=== PATIENT | male | born 1945 | race Caucasian/White ===

== ENCOUNTER 2020-01-18 10:28 | Inpatient (IN) | payer MEDICARE ==
[2020-01-18] VITALS (19 sets, daily range): BP systolic 109–168; BP diastolic 51–69
[~2020-01-18] VITALS: Ht 162.6 cm; Wt 70.2 kg
[2020-01-18] MEDS ORDERED: MORPHINE SULFATE 2 MG/ML VIAL. IV ONE (10:45)
[2020-01-18] MEDS ORDERED: HEPARIN for IV BOLUS 10,000 UNIT/10 ML VIAL. IV ONE (10:45)
--- NOTE | 2020-01-18 10:46 | PHYS DOC ---
Past Medical History Past Medical History: Diabetes-Type II Alcohol Use: None Drug Use: None General Adult EDM: Chief Complaint: Chest pain HPI: HPI: HPI and ED course : 75-year-old male presenting with chest pain. He has been having intermittent chest pain for a week however today he got worse and was associated with shortness of breath. He describes it as a pressure sensation that radiates to the shoulder. It is a moderate to severe. He was calling his doctor's office who called the paramedics for him based on his symptoms. Paramedics saw the patient did twelve-lead EKG and saw inferior ST elevation and called a code STEMI from the field. On arrival the cath team was here to receive the patient. Repeat EKG was performed which shows inferior ST elevation concerning for a STEMI. The patient was given aspirin in route by EMS. Here the patient was given 2 mg of morphine and a 4000 unit bolus of heparin. Plan is to take the patient to the [facility] for intervention. Review of systems negative for abdominal pain vomiting. Positive for diaphoresis nausea. Positive for chest pain and shortness of breath. Negative for unilateral leg swelling. He has some back pain as well. He denies any numbness weakness or tingling of his arms and legs. All other review of systems negative. Heart Score: Risk Factors: Risk Factors: DM, Current or recent (<one month) smoker, HTN, HLP, family history of CAD, obesity. Risk Scores: Score 0 - 3: 2.5% MACE over next 6 weeks - Discharge Home Score 4 - 6: 20.3% MACE over next 6 weeks - Admit for Clinical Observation Score 7 - 10: 72.7% MACE over next 6 weeks - Early Invasive Strategies Current Medications: Current Medications Medications (Trade) Dose Ordered Sig/[facility] Start Time Stop Time Status Last Admin Dose Admin Heparin Sodium (Porcine) (Heparin Sodium) 4,000 unit 1X ONCE 01/18/20 10:45 01/18/20 10:46 UNV Morphine Sulfate (Morphine Sulfate) 2 mg 1X ONCE 01/18/20 10:45 01/18/20 10:46 UNV Physical Exam: PE: Constitutional: Well developed, well nourished, patient appears to be in pain and uncomfortable. He is diaphoretic in the examination room. HENT: Normocephalic, atraumatic, bilateral external ears normal, oropharynx moist, no oral exudates, nose normal. [] Eyes: PERRLA, EOMI, conjunctiva normal, no discharge. [] Neck: Normal range of motion, no tenderness, supple, no stridor. [] Cardiovascular:Heart rate regular rhythm, no murmur [] Lungs & Thorax: Bilateral breath sounds clear to auscultation [] Abdomen: Bowel sounds normal, soft, no tenderness, no masses, no pulsatile masses. [] Skin: Warm, dry, no erythema, no rash. [] Back: No tenderness, no CVA tenderness. [] Extremities: No tenderness, no cyanosis, no clubbing, ROM intact, no edema. [] Neurologic: Alert and oriented X 3, normal motor function, normal sensory function, no focal deficits noted. [] Psychologic: Affect normal, judgement normal, mood normal. [] EKG: EKG: [] EKG shows sinus rhythm with a regular rate. ST segments show ST elevation in the inferior leads. STEMI. Radiology/Procedures: Radiology/Procedures: [] Course & Med Decision Making: Course & Med Decision Making Pertinent Labs and Imaging studies reviewed. (See chart for details) [] Dragon Disclaimer: Dragon Disclaimer: This electronic medical record was generated, in whole or in part, using a voice recognition dictation system. Departure Departure Impression: Primary Impression: STEMI (ST elevation myocardial infarction) Disposition: ADMITTED INPATIENT Admitting Physician: PROSPER Condition: GUARDED Justicifation of Admission Dx: Justifications for Admission: Justification of Admission Dx: Yes Angina: [facility] at Rest OR: Acute STEMI LEAH RAMOS MD Jan 18, 2020 10:46
[2020-01-18] MEDS ORDERED: fentaNYL PF VIAL 100 MCG/2 ML VIAL ONE (10:47)
[2020-01-18] MEDS ORDERED: MIDAZOLAM HCL/PF 2 MG/2 ML VIAL. ONE (10:47)
[2020-01-18] MEDS ORDERED: VERAPAMIL 5 MG/2 ML VIAL. ONE (10:48)
[2020-01-18] MEDS ORDERED: NITROGLYCERIN 200 MCG/2 ML SYRINGE FOR CATH/VASC LAB. ONE (10:48)
[2020-01-18] MEDS ORDERED: NITROGLYCERIN 200 MCG/2 ML SYRINGE FOR CATH/VASC LAB. IART ONE (11:00)
[2020-01-18] MEDS ORDERED: HEPARIN for IV BOLUS 10,000 UNIT/10 ML VIAL. IART ONE (11:00)
[2020-01-18] MEDS ORDERED: VERAPAMIL 5 MG/2 ML VIAL. IART ONE (11:00)
[2020-01-18] MEDS ORDERED: MIDAZOLAM HCL/PF 2 MG/2 ML VIAL. IV ONE (11:00)
[2020-01-18] MEDS ORDERED: fentaNYL PF VIAL 100 MCG/2 ML VIAL IV ONE (11:00)
[2020-01-18] MEDS ORDERED: IODIXANOL 320 MG/ML 100 ML VIAL. IART ONE (11:00)
[2020-01-18] MEDS ORDERED: LIDOCAINE 1% PF 2 ML VIAL. INJ ONE (11:00)
[2020-01-18 11:01] LABS: BASO # 0.1 x10^3/uL (0.0-0.2); BASO % 1 % (0-3); EOS # 0.1 x10^3/uL (0.0-0.7); EOS % 1 % (0-3); HEMATOCRIT 38.9 % (39.0-53.0); HEMOGLOBIN 13.3 g/dL (13.0-17.5); LYMPH # 1.8 x10^3/uL (1.0-4.8); LYMPH % 17 % (24-48); MEAN CORPUSCULAR HEMOGLOBIN 30 pg (25-35); MEAN CORPUSCULAR HGB CONC 34 g/dL (31-37); MEAN CORPUSCULAR VOLUME 88 fL (79-100); MONO # 0.7 x10^3/uL (0.0-1.1); MONO % 7 % (0-9); NEUT # 7.9 x10^3/uL (1.8-7.7); NEUT % 75 % (31-73); PLATELET COUNT 278 x10^3/uL (140-400); RED BLOOD COUNT 4.42 x10^6/uL (4.30-5.70); RED CELL DISTRIBUTION WIDTH 13.8 % (11.5-14.5); WHITE BLOOD COUNT 10.5 x10^3/uL (4.0-11.0)
[2020-01-18 11:09] LABS: CALCIUM 9.5 mg/dL (8.5-10.1); CREATININE 1.5 mg/dL (0.7-1.3); GFR 45.9; POTASSIUM 4.2 mmol/L (3.5-5.1)
[2020-01-18 11:15] LABS: DIRECT BILIRUBIN 0.2 mg/dL (0.0-0.2); PROTHROMBIN TIME PATIENT 12.5 SEC (11.7-14.0); TOTAL BILIRUBIN 0.5 mg/dL (0.2-1.0); TOTAL PROTEIN 7.1 g/dL (6.4-8.2)
[2020-01-18] MEDS ORDERED: CONTRAST GIVEN. MC PRN (11:15)
[2020-01-18] MEDS ORDERED: NITROGLYCERIN PREMIX 250 ML IV PRN (11:15)
[2020-01-18] MEDS ORDERED: HEPARIN for IV BOLUS 10,000 UNIT/10 ML VIAL. IV PRN (11:15)
[2020-01-18] MEDS ORDERED: HEPARIN 25,000UTS/250ML PREMIX 250 ML IV PRN (11:15)
--- NOTE | 2020-01-18 11:18 | EKG ---
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
--- NOTE | 2020-01-18 14:00 | NUR ---
Pt arrived to RM 108 @ 1130 from cath lab radiological technologist. Pt alert and oriented. Pt answers all admission questions appropriately. Head to toe completed. Heparin gtt started per CV protocol. Home medications were reviewed and restarted. Per Cardiology, pt will transfer to [facility] in the morning for CABG. Pt aware of situation.
--- NOTE | 2020-01-18 14:02 | CARD ---
MR#: [id number] Date of Study: 01/18/2020 Ordering Physician: MIN MILLS, Referring Physician: MIN MILLS, Tech: JENNY HAWTHORNE APPROVED REPORT Technologist: JENNY HAWTHORNE Nurse: ELDA JENKINS Procedure(s) performed: Fluoro Time: 3.4 min Dose: 52.47 Gycm2 Sedation Time: 30 min Contrast: 89 cc's Visi LHC, Coronary angiography, Left ventriculogram HISTORY : The patient is a 75 year-old male with a history of . INDICATION The indication(s) include : non-STEMI . CSHA Clinical Frailty Scale CS Clinical Frailty Scale: Moderately Frail Heart Failure Heart Failure: Yes If Yes, Newly Diagnosed: Yes If Yes, HF Type: Diastolic Systolic If Yes, NYHA Class: Class III PROCEDURE NARRATIVE Clinical indication: 75-year-old man with acute exertional dyspnea who presented to the hospital in t he setting of hypertensive urgency and transient ST elevations inferiorly. The cardiac catheterizati on team was activated for further evaluation and treatment. Verbal informed consent was obtained from the patient in the setting of emergency. Procedure details: Right radial arterial access was obtained via the Seldinger technique under 2% lidocaine local anesth esia and a 6 Telugu glide sheath was placed. Next, diagnostic angiography was performed with a 6 Min [facility] [place] catheter. Left ventriculography was performed with a pigtail catheter and a pullback was p erformed. Findings: Aorta: 156/82 LVEDP 20 mmHg Left ventriculogram reveals normal LV systolic function with posterior basal and proximal diaphragmat ic severe hypokinesis to akinesis. Ejection fraction 50%. Coronary angiography: Left main is a large-caliber calcified vessel with a distal 20% stenosis LAD is a moderate caliber vessel with a proximal calcified eccentric 70% stenosis followed by a calci fied 80 to 90% stenosis with focal small aneurysmal segment. The mid and distal has normal angiograp hic appearance The first diagonal is a moderate caliber vessel without any significant obstructive disease in the ta keoff of this vessel is after the proximal LAD stenosis The second diagonal is a moderate caliber vessel without any significant disease The left circumflex is a moderate caliber dominant vessel with heavy calcification and tortuosity wit h a proximal 80% stenosis, mid subtotal occlusion with a focal aneurysmal segment. OM1 is a moderate caliber vessel with mild luminal irregularities. LPL1 is a moderate caliber vessel that is seen to fill faintly via left to left collaterals. LPDA is a small caliber vessel with normal angiographic appearance. RCA is a small caliber non-dominant vessel with proximal 50% stenosis. Given lack of chest pain, normalization of EKG and chronic diffuse disease involving the dominant LCx and disease in the LAD with underlying history of DM2, the patient was referred for CABG. Conclusion 1. Acute on chronic systolic and diastolic HF. LVEDP 20 mm Hg 2. Mild LV dysfunction. EF 50% 3. Three vessel coronary disease. Recommendations ASA 81mg daily Hep gtt NTG gtt for BP control Referral for CABG. If deemed poor candidate, consider high risk PCI of the LCx and LAD. Signed by : Min Mills, Electronically Approved : 01/18/2020 14:02:05
--- NOTE | 2020-01-18 14:03 | HP ---
ADMIT DATE: 01/18/2020 CHIEF COMPLAINT: Chest pain. HISTORY OF PRESENT ILLNESS: The patient is a pleasant 75-year-old male who presents to the ER with chest pain. It is rated at 7/10. It is radiating to the left shoulder. It has been occurring for about a week. He was admitted overnight. This morning, he was taken to the garage laborer. It appears he does have multivessel disease. His troponin has also bumped up a little bit to 0.7. The patient is now being examined in the ICU. The plan I believe is to go ahead and to arrange for him to have bypass surgery. PAST MEDICAL HISTORY: Diabetes. ALLERGIES: CODEINE. FAMILY HISTORY: Coronary artery disease. SOCIAL HISTORY: He does not drink, smoke or take drugs. MEDICATIONS: Reviewed, please refer to the MRAD. REVIEW OF SYSTEMS: GENERAL: No history of weight change, weakness or fevers. SKIN: No bruising, hair changes or rashes. EYES: No blurred, double or loss of vision. NOSE AND THROAT: No history of nosebleeds, hoarseness or sore throat. HEART: No history of palpitations, chest pain or shortness of breath on exertion. LUNGS: Denies cough, hemoptysis, wheezing or shortness of breath. GASTROINTESTINAL: Denies changes in appetite, nausea, vomiting, diarrhea or constipation. GENITOURINARY: No history of frequency, urgency, hesitancy or nocturia. NEUROLOGIC: Denies history of numbness, tingling, tremor or weakness. PSYCHIATRIC: No history of panic, anxiety or depression. ENDOCRINE: No history of heat or cold intolerance, polyuria or polydipsia. EXTREMITIES: Denies muscle weakness, joint pain, pain on walking or stiffness. PHYSICAL EXAMINATION: VITALS: Within normal limits and are stable. GENERAL: No apparent distress. Alert and oriented. HEENT: Normal cephalic atraumatic, external auditory canals are patent. Eyes: Extraocular muscles are intact, pupils are equally round and reactive to light and accommodation. MUSCULOSKELETAL: Well developed, well nourished, good range of motion. ENDOCRINE: No thyromegaly was palpated. LYMPHATICS: No cervical chain or axillary nodes were noted. HEMATOPOIETIC: No bruising. NECK: Supple, no JVD, no thyromegaly was noted. LUNGS: Clear to auscultation in all lung de la cruz without rhonchi or wheezing. HEART: RRR, S1, S2 present. Peripheral pulses intact, no obvious murmurs were noted. ABDOMEN: Soft, nontender. Positive bowel sounds no organomegaly, normal bowel sounds. EXTREMITIES: He has a bandage on the right wrist where they just did the cardiac cath. NEUROLOGIC: Normal speech, normal tone. A and O x 3, moves all extremities, no obvious focal deficits. PSYCHIATRIC: Normal affect, normal mood. Stable. SKIN: No ulcerations or rashes, good skin turgor, no jaundice. VASCULAR: Good capillary refill, neurovascular bundle appears to be intact. LABORATORY DATA: Electrolytes are normal other than a BUN of 29, creatinine 1.5. White count 10, hemoglobin 13, platelets 278. INR is 1. ASSESSMENT AND PLAN: Acute myocardial infarction with multivessel coronary artery disease. The patient is currently being monitored in the ICU. We are awaiting further Cardiology input. I think the plan is to get him arranged for bypass surgery. For now, we are going to continue cardiac monitoring, home meds, deep venous thrombosis prophylaxis, wound care, p.r.n. morphine. Carotid Dopplers. We have ordered vein mapping, lipid panel, heparin drip, p.r.n. nitroglycerin. Long-term prognosis is guarded. ANABELLE PRITCHETT DO DR: XIOMARA/hair JOB#: [id number] / [id number]
[2020-01-18 14:09] LABS: CHOLESTEROL/HDL RATIO 5.6
[2020-01-18] MEDS ORDERED: BUPR150T6 PO (14:38)
[2020-01-18] MEDS ORDERED: PANT40TA77 PO (14:38)
[2020-01-18] MEDS ORDERED: HYDR25TA PO (14:38)
[2020-01-18] MEDS ORDERED: RAMI2.5C2 PO (14:38)
[2020-01-18] MEDS ORDERED: OXYB5TAB10 PO (14:38)
[2020-01-18] MEDS ORDERED: CARV6.2511 PO (14:38)
[2020-01-18] MEDS ORDERED: LEVO175T5 PO (14:38)
[2020-01-18] MEDS ORDERED: FURO40TA4 PO (14:38)
[2020-01-18] MEDS ORDERED: SUCR1TAB PO (14:38)
[2020-01-18] MEDS: FUROSEMIDE 40 MG TABLET. PO SCH (15:00)
--- NOTE | 2020-01-18 15:11 | NUR ---
Home medications restarted per MD-- furosemide not administered at 1500 due to pt taking all home medications this AM.
--- NOTE | 2020-01-18 15:20 | NUR ---
SS following for discharge planning. SS reviewed pt chart and discussed with pt RN. Pt is from home with spouse and is currently requiring oxygen. SS was notified that pt will transfer to [facility] [place] [place] for cardiac procedure on 01/19/2020. SS contacted [facility], ; fax [phone], and discussed with transfer team. SS faxed records as requested. [facility] reported that any additional records and CD of imaging be sent once received. Case management assisting. [facility] reported that they are currently awaiting facility approval. Packet and transfer form placed on chart. SS will continue to follow for discharge planning.
--- NOTE | 2020-01-18 17:17 | RAD ---
EXAM: Carotid Doppler sonogram. HISTORY: CABG. Preoperative planning. Atherosclerosis. TECHNIQUE: Doppler sonographic evaluation of the neck was performed and static images are submitted for review. FINDINGS: There is moderate atherosclerotic plaque within the bilateral internal carotid arteries and mild atherosclerotic plaque within the common carotid arteries and external carotid arteries. The peak systolic velocity within the right common carotid artery is 94 cm/sec. The peak systolic velocity within the right internal carotid artery is 81 cm/sec and the end diastolic velocity within the right internal carotid artery is 20 cm/sec. The right ICA/CCA ratio is 0.86. The peak systolic velocity within the left common carotid artery is 106 cm/sec. The peak systolic velocity within the left internal carotid artery is 96 cm/sec and the end diastolic velocity within the left internal carotid artery is 19 cm/sec. The left ICA/CCA ratio is 0.90. There is normal antegrade flow within both vertebral arteries. IMPRESSION: 1. No Doppler evidence of hemodynamically significant stenosis. 2. Moderate atherosclerotic plaque within the bilateral internal carotid arteries and mild atherosclerotic plaque within the common carotid arteries and external carotid arteries. PQRS Compliance Statement - Stenosis calculations for CT, MR and conventional angiography are based upon measurement of the distal ICA diameter in accordance with the NASCET methodology. Stenosis calculations for carotid ultrasound studies are derived from validated velocity criteria which are known to correlate with the NASCET methodology. Electronically signed by: Felipa Hoff MD (01/18/2020 5:14 PM) [id number]
--- NOTE | 2020-01-18 17:22 | RAD ---
EXAM: Bilateral lower extremity venous mapping. HISTORY: CABG. Preoperative planning. TECHNIQUE: Sonographic imaging of the lower extremity veins was performed. COMPARISON: None. FINDINGS: The right greater saphenous vein measures 9.4 mm at its origin, 4.2 mm within the proximal thigh, 3.2 mm within the mid thigh, 2.8 mm within the distal thigh, 2.9 mm at the level of the knee, 3.2 mm within the proximal calf, 2.9 mm within the mid calf and 2.9 mm at the ankle. The right lesser saphenous vein measures 3.2 mm within the proximal calf, 2.2 mm within the mid calf and 1.6 mm within the distal calf. The left greater saphenous vein measures 6.3 mm at its origin, 6.7 mm within the proximal thigh, 4.5 mm within the mid thigh, 3.3 mm within the distal thigh, 3.5 mm at the level of the knee, 3.3 mm within the proximal calf, 3.1 mm within the mid calf and 3.3 mm at the ankle. The left lesser saphenous vein measures 2.5 mm within the proximal calf, to 0.2 mm within the mid calf and 2.4 mm within the distal calf. There is an incidental nonocclusive chronic-appearing thrombus within the right common femoral vein. IMPRESSION: 1. Bilateral greater saphenous vein and lesser saphenous vein caliber measurements for operative planning. 2. Incidental nonocclusive chronic-appearing thrombus within the right common femoral vein. Electronically signed by: Felipa Hoff MD (01/18/2020 5:19 PM) [id number]
--- NOTE | 2020-01-18 17:33 | CARD ---
MR#: [id number] Date of Study: 01/18/2020 Ordering Physician: POLINA BAUER, Referring Physician: POLINA BAUER, Tech: Kaya Victor APPROVED REPORT EXAM: Two-dimensional and M-mode echocardiogram with Doppler and color Doppler. Other Information Quality : AverageHR: 68bpm INDICATION STEMI RISK FACTORS Hypertension Diabetes 2D DIMENSIONS Left Atrium(2D)3.0 (1.6-4.0cm)IVSd1.1 (0.7-1.1cm) Aortic Root(2D)3.0 (2.0-3.7cm)LVDd5.1 (3.9-5.9cm) PWd0.9 (0.7-1.1cm)LVDs2.9 (2.5-4.0cm) FS (%) 43.0 %SV92.6 ml Aortic Valve AoV Peak Anthony.153.0cm/sAoV VTI32.0cm AO Peak GR.9.4mmHgLVOT VTI 20.14cm AO Mean GR.6mmHg Mitral Valve MV E Ozoosjxw27.7cm/sMV E Peak Gr.3mmHg MV DECEL [id number] A Bpgrplie45.6cm/s MV E Mean Gr.1mmHgE/A Ratio1.2 TDI Lateral E' P. V10.46cm/sMedial E' P. V10.26cm/s E/Lateral E'8.2E/Medial E'8.4 Tricuspid Valve TR P. Fzsfnlgf952tk/sRAP [id number] TR Peak Gr.31wgQxEZHN37snPg LEFT VENTRICLE The left ventricle is normal size. There is normal left ventricular wall thickness. The left ventricu lar systolic function is normal. The Ejection Fraction is 50-55%. There is normal LV segmental wall m otion. Transmitral Doppler flow pattern is Grade II-pseudonormal filling dynamics. RIGHT VENTRICLE The right ventricle is normal size. There is normal right ventricular wall thickness. The right ventr icular systolic function is normal. ATRIA The left atrium size is normal. The right atrium size is normal. The interatrial septum is intact wit h no evidence for an atrial septal defect or patent foramen ovale as noted on 2-D or Doppler imaging. AORTIC VALVE The aortic valve is calcified but opens well. Doppler and Color Flow revealed trace aortic regurgitat ion. There is no significant aortic valvular stenosis. Calculated aortic valve area is 1.88 cm2 with maximum pressure gradient of 10 mmHg and mean pressure gradient of 6 mmHg. MITRAL VALVE The mitral valve is normal in structure and function. There is no evidence of mitral valve prolapse. There is no mitral valve stenosis. Doppler and Color-flow revealed trace mitral regurgitation. TRICUSPID VALVE The tricuspid valve is normal in structure and function. Doppler and Color Flow revealed trace tricus pid regurgitation with an estimated 21 mmHg. There is no tricuspid valve stenosis. PULMONIC VALVE The pulmonic valve is not well visualized. Doppler and Color Flow revealed no pulmonic valvular regur gitation. GREAT VESSELS The aortic root is normal in size. The ascending aorta is normal in size. The IVC is normal in size a nd collapses >50% with inspiration. PERICARDIAL EFFUSION There is no evidence of significant pericardial effusion. Critical Notification Critical Value: No <Conclusion> The left ventricle is normal size. The left ventricular systolic function is normal. The Ejection Fraction is 50-55%. There is normal LV segmental wall motion. Doppler and Color Flow revealed trace aortic regurgitation. There is no significant aortic valvular stenosis. Calculated aortic valve area is 1.88 cm2 with maximum pressure gradient of 10 mmHg and mean pressure gradient of 6 mmHg. Doppler and Color-flow revealed trace mitral regurgitation. Doppler and Color Flow revealed trace tricuspid regurgitation with an estimated 21 mmHg. Signed by : Prateek Huang MD Electronically Approved : 01/18/2020 17:33:36
[2020-01-18] MEDS: CARVEDILOL 6.25 MG TABLET. PO SCH (18:18)
[2020-01-18] MEDS: PANTOPRAZOLE 40 MG TABLET.DR. PO SCH (18:18)
[2020-01-18] MEDS: SUCRALFATE 1 GM TABLET. PO SCH ×2 (18:18→20:22)
[2020-01-18] MEDS: OXYBUTYNIN CHLORIDE 5 MG TABLET PO SCH (20:22)
--- NOTE | 2020-01-18 21:57 | NUR ---
This nurse was able to get a hold of [employer] to check on patient . A sergeant with [place] [employer] called back and stated that his was safe and she would be calling soon. His Carole called and this nurse gave her an update on the pt with his permission. The has requested that the pt be transferred to [facility] or [facility]. Will let nurse taking over care in the am know about the 's concerns and requests.
--- NOTE | 2020-01-18 23:33 | CONS ---
DATE OF CONSULTATION: 01/18/2020 REASON FOR CONSULTATION: Elevated troponin and ST segment elevation. HISTORY OF PRESENT ILLNESS: The patient is a pleasant 75-year-old man who presented to the hospital as an urgent evaluation for possible ST segment elevation. He apparently was in his doctor's office when he was noted to have sudden onset of worsening shortness of breath and chest pain and this prompted transfer to the hospital via EMS. EMS while en route activated the STEMI team. Upon arrival to the hospital, the patient was in moderate distress with dyspnea and some chest pressure. He also complained of leg pain. In this setting, an EKG reveals subtle inferior ST elevations and therefore, the patient was taken urgently to the cardiac catheterization laboratory. PAST MEDICAL HISTORY: 1. Hypertension. 2. Hypothyroidism. 3. Dyslipidemia. 4. Diabetes. SOCIAL HISTORY: The patient denies any alcohol, tobacco or illicit drug use. 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 He does not have significant family support. ALLERGIES: CODEINE. FAMILY HISTORY: Noncontributory. REVIEW OF SYSTEMS: Negative for 10 out of 14 systems reviewed, unless otherwise mentioned above in HPI. PHYSICAL EXAMINATION: VITAL SIGNS: Afebrile. 68, 18, 149/66, 96% on room air. GENERAL: He was in moderate distress upon initial evaluation, but then was stabilized. HEAD AND NECK: Unremarkable. CARDIAC: Regular rate without any murmurs. LUNGS: Clear to auscultation anteriorly. ABDOMEN: Soft, nontender. EXTREMITIES: 2+ radial and dorsalis pedis pulses. NEUROLOGIC: No focal deficits. MUSCULOSKELETAL: No trauma. DIAGNOSTIC STUDIES: Initial EKG revealed subtle anterior ST segment depression, inferior ST elevation. Laboratory evaluation revealed normal white blood cell count. Creatinine 1.5 and BNP of 1144. Cardiac catheterization, 3-vessel coronary artery disease. IMPRESSION: 1. Transient inferior-posterior ST segment elevation myocardial infarction. 2. Hypertension. 3. Dyslipidemia. RECOMMENDATIONS: I discussed the case with Dr. Wood at [facility] regarding possible transfer for evaluation of coronary artery bypass grafting given that he has complex disease involving the left circumflex, which is a dominant vessel. The patient will be evaluated for bypass and transferred as appropriate in the next 24 hours. Continue heparin and aspirin therapy. Thank you for this consultation. We will follow along closely. MIN MILLS MD DR: KATHERYN/hair JOB#: [id number] / [id number]
[2020-01-19] VITALS (9 sets, daily range): BP systolic 121–153; BP diastolic 51–75
[2020-01-19] MEDS ORDERED: MAG HYDROX/ALUMINUM HYD/SIMETH 30 ML ORAL.SUSP PO PRN (02:30)
[2020-01-19] MEDS ORDERED: LEVOTHYROXINE 175 MCG TABLET PO SCH (06:00)
--- NOTE | 2020-01-19 06:59 | NUR ---
Report called to Jhoan at [facility].
[2020-01-19 07:15] LABS: HEMATOCRIT 36.1 % (39.0-53.0); HEMOGLOBIN 12.6 g/dL (13.0-17.5); RED BLOOD COUNT 4.12 x10^6/uL (4.30-5.70); RED CELL DISTRIBUTION WIDTH 13.5 % (11.5-14.5)
[2020-01-19] MEDS ORDERED: buPROPion XL 150 MG TAB.ER.24H. PO SCH (08:00)
[2020-01-19] MEDS: SUCRALFATE 1 GM TABLET. PO SCH (08:01)
[2020-01-19] MEDS: OXYBUTYNIN CHLORIDE 5 MG TABLET PO SCH (08:02)
[2020-01-19] MEDS: FUROSEMIDE 40 MG TABLET. PO SCH (08:02)
[2020-01-19] MEDS: PANTOPRAZOLE 40 MG TABLET.DR. PO SCH (08:02)
[2020-01-19] MEDS: CARVEDILOL 6.25 MG TABLET. PO SCH (08:02)
[2020-01-19] MEDS ORDERED: ASPIRIN CHEWABLE 81 MG TABLET. ONE (08:39)
--- NOTE | 2020-01-19 08:41 | NUR ---
SS following up with discharge planning. Pt accepted at [facility], [address] [place], [address]. Bed# 2338. Accepting physician, Dr. Us. Packet, CD's, ambulance form, and transfer form on chart. Pt transferring via [facility] at 0845 today.
--- NOTE | 2020-01-19 08:42 | RAD ---
CT CHEST WO CONTRAST History: Pre-CABG evaluation. Technique: Noncontrast CT of the chest was performed. Coronal and sagittal reconstructions were performed. Exposure: One or more of the following individualized dose reduction techniques were utilized for this examination: 1. Automated exposure control 2. Adjustment of the mA and/or kV according to patient size 3. Use of iterative reconstruction technique. Comparison: None Findings: Chest: Coronary artery calcification. Mild atheromatous plaque within the aorta. No pathologic lymphadenopathy. No consolidation or pleural effusion. Upper abdomen: Prior cholecystectomy. Bones: Chronic T10 superior endplate compression deformity. No pathologic osseous lesions. Impression: 1. Coronary artery calcification. Electronically signed by: Haider Ulloa DO (01/19/2020 8:40 AM) [id number]
--- NOTE | 2020-01-19 08:50 | NUR ---
Pt transferred to [facility] per EMS with 2l nc/. Cell phone clothes wallet in bag. He talked with on phone. ASA 81 po with morning meds. Hep gtt infusing. Report update to Jhoan MORAN as hep increased to 11.2cc( 16U/K/H) CT chest was done eartlier. Pt w/o apin or SOA. 1/2 piece of toast with meds. Marci CERVANTES updated
--- NOTE | 2020-01-19 09:10 | PDOC ---
PROGRESS NOTES History of Present Illness History of Present Illness ASSESSMENT AND PLAN: Acute myocardial infarction with multivessel coronary artery disease. NTG gtt for BP control Referral for CABG. LAD is a moderate caliber vessel with a proximal calcified eccentric 70% stenosis followed by a calcified 80 to 90% stenosis with focal small aneurysmal segment. The mid and distal has normal angiographic appearance The first diagonal is a moderate caliber vessel without any significant obstructive disease in the takeoff of this vessel is after the proximal LAD stenosis The second diagonal is a moderate caliber vessel without any significant disease The left circumflex is a moderate caliber dominant vessel with heavy calcification and tortuosity with a proximal 80% stenosis, plan ICU bed. Cardiology input. bypass surgery. home meds, deep venous thrombosis prophylaxis, wound care, p.r.n. morphine. Carotid Dopplers. vein mapping, lipid panel, heparin drip, p.r.n. nitroglycerin. The patient will be evaluated for bypass and transferred as appropriate in the next 4 hours. Continue heparin and aspirin therapy. 35 MIN CC TIME Vitals Vitals Vital Signs Date Time Temp Pulse Resp B/P (MAP) Pulse Ox O2 Delivery O2 Flow Rate FiO2 01/19/20 08:02 68 150/60 01/19/20 08:00 98.4 16 98 Nasal Cannula 2.0 98.4 Physical Exam General: Alert, Oriented X3, Cooperative Labs LABS CT CHEST WO CONTRAST History: Pre-CABG evaluation. Technique: Noncontrast CT of the chest was performed. Coronal and sagittal reconstructions were performed. Exposure: One or more of the following individualized dose reduction techniques were utilized for this examination: 1. Automated exposure control 2. Adjustment of the mA and/or kV according to patient size 3. Use of iterative reconstruction technique. Comparison: None Findings: Chest: Coronary artery calcification. Mild atheromatous plaque within the aorta. No pathologic lymphadenopathy. No consolidation or pleural effusion. Upper abdomen: Prior cholecystectomy. Bones: Chronic T10 superior endplate compression deformity. No pathologic osseous lesions. Impression: 1. Coronary artery calcification. Electronically signed by: Haider Barros DO (01/19/2020 8:40 AM) [id number] DICTATED and SIGNED BY: HAIDER BARROS DO DATE: 01/19/20 0840 Heart Failure Heart Failure: Yes If Yes, Newly Diagnosed: Yes If Yes, HF Type: Diastolic Systolic If Yes, NYHA Class: Class III PROCEDURE NARRATIVE Clinical indication: 75-year-old man with acute exertional dyspnea who presented to the hospital in the setting of hypertensive urgency and transient ST elevations inferiorly. The cardiac catheterization team was activated for further evaluation and treatment. Verbal informed consent was obtained from the patient in the setting of emergency. Procedure details: Right radial arterial access was obtained via the Seldinger technique under 2% lidocaine local anesthesia and a 6 Danish glide sheath was placed. Next, diagnostic angiography was performed with a 6 Danish [place] catheter. Left ventriculography was performed with a pigtail catheter and a pullback was performed. Findings: Aorta: 156/82 LVEDP 20 mmHg Left ventriculogram reveals normal LV systolic function with posterior basal and proximal diaphragmatic severe hypokinesis to akinesis. Ejection fraction 50%. Coronary angiography: Left main is a large-caliber calcified vessel with a distal 20% stenosis LAD is a moderate caliber vessel with a proximal calcified eccentric 70% stenosis followed by a calcified 80 to 90% stenosis with focal small aneurysmal segment. The mid and distal has normal angiographic appearance The first diagonal is a moderate caliber vessel without any significant obstructive disease in the takeoff of this vessel is after the proximal LAD stenosis The second diagonal is a moderate caliber vessel without any significant disease The left circumflex is a moderate caliber dominant vessel with heavy calcification and tortuosity with a proximal 80% stenosis, mid subtotal occlusion with a focal aneurysmal segment. OM1 is a moderate caliber vessel with mild luminal irregularities. LPL1 is a moderate caliber vessel that is seen to fill faintly via left to left collaterals. LPDA is a small caliber vessel with normal angiographic appearance. RCA is a small caliber non-dominant vessel with proximal 50% stenosis. Given lack of chest pain, normalization of EKG and chronic diffuse disease involving the dominant LCx and disease in the LAD with underlying history of DM2, the patient was referred for CABG. Conclusion 1. Acute on chronic systolic and diastolic HF. LVEDP 20 mm Hg 2. Mild LV dysfunction. EF 50% 3. Three vessel coronary disease. Recommendations ASA 81mg daily Hep gtt NTG gtt for BP control Referral for CABG. If deemed poor candidate, consider high risk PCI of the LCx and LAD. Signed by : Mickey Mullins, Electronically Approved : 01/18/2020 14:02:05 Laboratory Tests Test 01/18/20 10:42 01/18/20 17:45 01/18/20 18:00 01/19/20 00:50 White Blood Count 10.5 x10^3/uL (4.0-11.0) Red Blood Count 4.42 x10^6/uL (4.30-5.70) Hemoglobin 13.3 g/dL (13.0-17.5) Hematocrit 38.9 % (39.0-53.0) Mean Corpuscular Volume 88 fL (79-100) Mean Corpuscular Hemoglobin 30 pg (25-35) Mean Corpuscular Hemoglobin Concent 34 g/dL (31-37) Red Cell Distribution Width 13.8 % (11.5-14.5) Platelet Count 278 x10^3/uL (140-400) Neutrophils (%) (Auto) 75 % (31-73) Lymphocytes (%) (Auto) 17 % (24-48) Monocytes (%) (Auto) 7 % (0-9) Eosinophils (%) (Auto) 1 % (0-3) Basophils (%) (Auto) 1 % (0-3) Neutrophils # (Auto) 7.9 x10^3/uL (1.8-7.7) Lymphocytes # (Auto) 1.8 x10^3/uL (1.0-4.8) Monocytes # (Auto) 0.7 x10^3/uL (0.0-1.1) Eosinophils # (Auto) 0.1 x10^3/uL (0.0-0.7) Basophils # (Auto) 0.1 x10^3/uL (0.0-0.2) Prothrombin Time 12.5 SEC (11.7-14.0) Prothromb Time International Ratio 1.0 (0.8-1.1) Activated Partial Thromboplast Time 27 SEC (24-38) Sodium Level 138 mmol/L (136-145) Potassium Level 4.2 mmol/L (3.5-5.1) Chloride Level 103 mmol/L (98-107) Carbon Dioxide Level 28 mmol/L (21-32) Anion Gap 7 (6-14) Blood Urea Nitrogen 29 mg/dL (8-26) Creatinine 1.5 mg/dL (0.7-1.3) Estimated GFR (Cockcroft-Gault) 45.9 Glucose Level 198 mg/dL (70-99) Calcium Level 9.5 mg/dL (8.5-10.1) Total Bilirubin 0.5 mg/dL (0.2-1.0) Direct Bilirubin 0.2 mg/dL (0.0-0.2) Aspartate Amino Transf (AST/SGOT) 38 U/L (15-37) Alanine Aminotransferase (ALT/SGPT) 50 U/L (16-63) Alkaline Phosphatase 237 U/L (46-116) Troponin I Quantitative 0.703 ng/mL (0.000-0.055) ZY-Trx-U-Type Natriuretic Peptide 1144 pg/mL (0-124) Total Protein 7.1 g/dL (6.4-8.2) Albumin 3.0 g/dL (3.4-5.0) Triglycerides Level 178 mg/dL (0-150) Cholesterol Level 190 mg/dL (0-200) LDL Cholesterol, Calculated 120 mg/dL (0-100) VLDL Cholesterol, Calculated 36 mg/dL (0-40) Non-HDL Cholesterol Calculated 156 mg/dL (0-129) HDL Cholesterol 34 mg/dL (40-60) Cholesterol/HDL Ratio 5.6 Lipase 160 U/L (73-393) Heparin Anti-Xa Act, Unfractionated 0.31 IU/mL (0.30-0.70) 0.20 IU/mL (0.30-0.70) SARS-CoV-2 Antigen (Rapid) Negative (NEGATIVE) Test 01/19/20 06:55 White Blood Count 9.0 x10^3/uL (4.0-11.0) Red Blood Count 4.12 x10^6/uL (4.30-5.70) Hemoglobin 12.6 g/dL (13.0-17.5) Hematocrit 36.1 % (39.0-53.0) Mean Corpuscular Volume 88 fL (79-100) Mean Corpuscular Hemoglobin 31 pg (25-35) Mean Corpuscular Hemoglobin Concent 35 g/dL (31-37) Red Cell Distribution Width 13.5 % (11.5-14.5) Platelet Count 233 x10^3/uL (140-400) Heparin Anti-Xa Act, Unfractionated 0.28 IU/mL (0.30-0.70) Assessment and Plan Assessmemt and Plan Problems Medical Problems: (1) STEMI (ST elevation myocardial infarction) Status: Acute Comment Review of Relevant I have reviewed the following items elidia (where applicable) has been applied. Labs Laboratory Tests Test 01/18/20 10:42 01/18/20 17:45 01/18/20 18:00 01/19/20 00:50 White Blood Count 10.5 x10^3/uL (4.0-11.0) Red Blood Count 4.42 x10^6/uL (4.30-5.70) Hemoglobin 13.3 g/dL (13.0-17.5) Hematocrit 38.9 % (39.0-53.0) Mean Corpuscular Volume 88 fL (79-100) Mean Corpuscular Hemoglobin 30 pg (25-35) Mean Corpuscular Hemoglobin Concent 34 g/dL (31-37) Red Cell Distribution Width 13.8 % (11.5-14.5) Platelet Count 278 x10^3/uL (140-400) Neutrophils (%) (Auto) 75 % (31-73) Lymphocytes (%) (Auto) 17 % (24-48) Monocytes (%) (Auto) 7 % (0-9) Eosinophils (%) (Auto) 1 % (0-3) Basophils (%) (Auto) 1 % (0-3) Neutrophils # (Auto) 7.9 x10^3/uL (1.8-7.7) Lymphocytes # (Auto) 1.8 x10^3/uL (1.0-4.8) Monocytes # (Auto) 0.7 x10^3/uL (0.0-1.1) Eosinophils # (Auto) 0.1 x10^3/uL (0.0-0.7) Basophils # (Auto) 0.1 x10^3/uL (0.0-0.2) Prothrombin Time 12.5 SEC (11.7-14.0) Prothromb Time International Ratio 1.0 (0.8-1.1) Activated Partial Thromboplast Time 27 SEC (24-38) Sodium Level 138 mmol/L (136-145) Potassium Level 4.2 mmol/L (3.5-5.1) Chloride Level 103 mmol/L (98-107) Carbon Dioxide Level 28 mmol/L (21-32) Anion Gap 7 (6-14) Blood Urea Nitrogen 29 mg/dL (8-26) Creatinine 1.5 mg/dL (0.7-1.3) Estimated GFR (Cockcroft-Gault) 45.9 Glucose Level 198 mg/dL (70-99) Calcium Level 9.5 mg/dL (8.5-10.1) Total Bilirubin 0.5 mg/dL (0.2-1.0) Direct Bilirubin 0.2 mg/dL (0.0-0.2) Aspartate Amino Transf (AST/SGOT) 38 U/L (15-37) Alanine Aminotransferase (ALT/SGPT) 50 U/L (16-63) Alkaline Phosphatase 237 U/L (46-116) Troponin I Quantitative 0.703 ng/mL (0.000-0.055) SI-Dlh-H-Type Natriuretic Peptide 1144 pg/mL (0-124) Total Protein 7.1 g/dL (6.4-8.2) Albumin 3.0 g/dL (3.4-5.0) Triglycerides Level 178 mg/dL (0-150) Cholesterol Level 190 mg/dL (0-200) LDL Cholesterol, Calculated 120 mg/dL (0-100) VLDL Cholesterol, Calculated 36 mg/dL (0-40) Non-HDL Cholesterol Calculated 156 mg/dL (0-129) HDL Cholesterol 34 mg/dL (40-60) Cholesterol/HDL Ratio 5.6 Lipase 160 U/L (73-393) Heparin Anti-Xa Act, Unfractionated 0.31 IU/mL (0.30-0.70) 0.20 IU/mL (0.30-0.70) SARS-CoV-2 Antigen (Rapid) Negative (NEGATIVE) Test 01/19/20 06:55 White Blood Count 9.0 x10^3/uL (4.0-11.0) Red Blood Count 4.12 x10^6/uL (4.30-5.70) Hemoglobin 12.6 g/dL (13.0-17.5) Hematocrit 36.1 % (39.0-53.0) Mean Corpuscular Volume 88 fL (79-100) Mean Corpuscular Hemoglobin 31 pg (25-35) Mean Corpuscular Hemoglobin Concent 35 g/dL (31-37) Red Cell Distribution Width 13.5 % (11.5-14.5) Platelet Count 233 x10^3/uL (140-400) Heparin Anti-Xa Act, Unfractionated 0.28 IU/mL (0.30-0.70) Laboratory Tests Test 01/18/20 10:42 01/18/20 17:45 01/18/20 18:00 01/19/20 00:50 White Blood Count 10.5 x10^3/uL (4.0-11.0) Red Blood Count 4.42 x10^6/uL (4.30-5.70) Hemoglobin 13.3 g/dL (13.0-17.5) Hematocrit 38.9 % (39.0-53.0) Mean Corpuscular Volume 88 fL (79-100) Mean Corpuscular Hemoglobin 30 pg (25-35) Mean Corpuscular Hemoglobin Concent 34 g/dL (31-37) Red Cell Distribution Width 13.8 % (11.5-14.5) Platelet Count 278 x10^3/uL (140-400) Neutrophils (%) (Auto) 75 % (31-73) Lymphocytes (%) (Auto) 17 % (24-48) Monocytes (%) (Auto) 7 % (0-9) Eosinophils (%) (Auto) 1 % (0-3) Basophils (%) (Auto) 1 % (0-3) Neutrophils # (Auto) 7.9 x10^3/uL (1.8-7.7) Lymphocytes # (Auto) 1.8 x10^3/uL (1.0-4.8) Monocytes # (Auto) 0.7 x10^3/uL (0.0-1.1) Eosinophils # (Auto) 0.1 x10^3/uL (0.0-0.7) Basophils # (Auto) 0.1 x10^3/uL (0.0-0.2) Prothrombin Time 12.5 SEC (11.7-14.0) Prothromb Time International Ratio 1.0 (0.8-1.1) Activated Partial Thromboplast Time 27 SEC (24-38) Sodium Level 138 mmol/L (136-145) Potassium Level 4.2 mmol/L (3.5-5.1) Chloride Level 103 mmol/L (98-107) Carbon Dioxide Level 28 mmol/L (21-32) Anion Gap 7 (6-14) Blood Urea Nitrogen 29 mg/dL (8-26) Creatinine 1.5 mg/dL (0.7-1.3) Estimated GFR (Cockcroft-Gault) 45.9 Glucose Level 198 mg/dL (70-99) Calcium Level 9.5 mg/dL (8.5-10.1) Total Bilirubin 0.5 mg/dL (0.2-1.0) Direct Bilirubin 0.2 mg/dL (0.0-0.2) Aspartate Amino Transf (AST/SGOT) 38 U/L (15-37) Alanine Aminotransferase (ALT/SGPT) 50 U/L (16-63) Alkaline Phosphatase 237 U/L (46-116) Troponin I Quantitative 0.703 ng/mL (0.000-0.055) US-Xwk-R-Type Natriuretic Peptide 1144 pg/mL (0-124) Total Protein 7.1 g/dL (6.4-8.2) Albumin 3.0 g/dL (3.4-5.0) Triglycerides Level 178 mg/dL (0-150) Cholesterol Level 190 mg/dL (0-200) LDL Cholesterol, Calculated 120 mg/dL (0-100) VLDL Cholesterol, Calculated 36 mg/dL (0-40) Non-HDL Cholesterol Calculated 156 mg/dL (0-129) HDL Cholesterol 34 mg/dL (40-60) Cholesterol/HDL Ratio 5.6 Lipase 160 U/L (73-393) Heparin Anti-Xa Act, Unfractionated 0.31 IU/mL (0.30-0.70) 0.20 IU/mL (0.30-0.70) SARS-CoV-2 Antigen (Rapid) Negative (NEGATIVE) Test 01/19/20 06:55 White Blood Count 9.0 x10^3/uL (4.0-11.0) Red Blood Count 4.12 x10^6/uL (4.30-5.70) Hemoglobin 12.6 g/dL (13.0-17.5) Hematocrit 36.1 % (39.0-53.0) Mean Corpuscular Volume 88 fL (79-100) Mean Corpuscular Hemoglobin 31 pg (25-35) Mean Corpuscular Hemoglobin Concent 35 g/dL (31-37) Red Cell Distribution Width 13.5 % (11.5-14.5) Platelet Count 233 x10^3/uL (140-400) Heparin Anti-Xa Act, Unfractionated 0.28 IU/mL (0.30-0.70) Medications Current Medications Heparin Sodium (Porcine) (Heparin Sodium) 4,000 unit 1X ONCE IV Last administered on 01/18/20at 10:40; Start 01/18/20 at 10:45; Stop 01/18/20 at 11:00; Status DC Morphine Sulfate (Morphine Sulfate) 2 mg 1X ONCE IV Last administered on 01/18/20at 10:40; Start 01/18/20 at 10:45; Stop 01/18/20 at 11:00; Status DC Fentanyl Citrate (Fentanyl 2ml Vial) 100 mcg STK-MED ONCE .ROUTE ; Start 01/18/20 at 10:47; Stop 01/18/20 at 10:47; Status DC Midazolam HCl (Versed) 2 mg STK-MED ONCE .ROUTE ; Start 01/18/20 at 10:47; Stop 01/18/20 at 10:47; Status DC Verapamil HCl (Verapamil) 5 mg STK-MED ONCE .ROUTE ; Start 01/18/20 at 10:48; Stop 01/18/20 at 10:48; Status DC Nitroglycerin (Nitroglycerin) 200 mcg STK-MED ONCE .ROUTE ; Start 01/18/20 at 10:48; Stop 01/18/20 at 10:48; Status DC Nitroglycerin (Nitroglycerin) 200 mcg 1X ONCE IART Last administered on 01/18/20at 11:00; Start 01/18/20 at 11:00; Stop 01/18/20 at 11:07; Status DC Verapamil HCl (Verapamil) 2.5 mg 1X ONCE IART Last administered on 01/18/20at 11:00; Start 01/18/20 at 11:00; Stop 01/18/20 at 11:07; Status DC Heparin Sodium (Porcine) (Heparin Sodium) 2,500 unit 1X ONCE IART Last administered on 01/18/20at 11:00; Start 01/18/20 at 11:00; Stop 01/18/20 at 11:07; Status DC Heparin Sodium/ Sodium Chloride (HEPARIN for ARTERIAL LINE FLUSH) 1,000 unit 1X ONCE IART Last administered on 01/18/20at 11:00; Start 01/18/20 at 11:00; Stop 01/18/20 at 11:08; Status DC Heparin Sodium/ Sodium Chloride (HEPARIN for ARTERIAL LINE FLUSH) 1,000 unit 1X ONCE IART Last administered on 01/18/20at 11:00; Start 01/18/20 at 11:00; Stop 01/18/20 at 11:07; Status DC Midazolam HCl (Versed) 2 mg 1X ONCE IV Last administered on 01/18/20at 11:00; Start 01/18/20 at 11:00; Stop 01/18/20 at 11:07; Status DC Fentanyl Citrate (Fentanyl 2ml Vial) 100 mcg 1X ONCE IV Last administered on at 11:00; Start 01/18/20 at 11:00; Stop 01/18/20 at 11:07; Status DC Iodixanol (Visipaque 320) 100 ml 1X ONCE IART Last administered on 01/18/20at 11:00; Start 01/18/20 at 11:00; Stop 01/18/20 at 11:07; Status DC Lidocaine HCl (Xylocaine-Mpf 1% 2ml Vial) 2 ml 1X ONCE INJ Last administered on 01/18/20at 11:00; Start 01/18/20 at 11:00; Stop 01/18/20 at 11:07; Status DC Info (CONTRAST GIVEN -- Rx MONITORING) 1 each PRN DAILY PRN MC SEE COMMENTS; Start 01/18/20 at 11:15; Stop 01/20/20 at 11:14 Heparin Sodium/ Dextrose 250 ml @ 8.65 mls/hr CONT PRN IV PER PROTOCOL Last administered on 01/18/20at 11:55; Start 01/18/20 at 11:15; Stop 01/19/20 at 11:14 Heparin Sodium (Porcine) (Heparin Sodium) 1,800 unit PRN Q6HRS PRN IV FOR UFH LEVEL LESS THAN 0.2; Start 01/18/20 at 11:15; Stop 01/19/20 at 11:14 Nitroglycerin/ Dextrose 250 ml @ 1.5 mls/hr CONT PRN IV SEE I/O RECORD; Start 01/18/20 at 11:15; Stop 01/19/20 at 11:14 Bupropion HCl (Wellbutrin Xl) 450 mg DAILYWBKFT PO Last administered on 01/19/20at 08:01; Start 01/19/20 at 08:00 Carvedilol (Coreg) 6.25 mg BIDWMEALS PO Last administered on 01/19/20at 08:02; Start 01/18/20 at 17:00 Furosemide (Lasix) 40 mg DAILY PO Last administered on 01/19/20at 08:02; Start 01/18/20 at 15:00 Levothyroxine Sodium (Synthroid) 175 mcg DAILY06 PO Last administered on 01/19/20at 05:48; Start 01/19/20 at 06:00 Oxybutynin Chloride (Ditropan) 5 mg BID PO Last administered on 01/19/20at 08:02; Start 01/18/20 at 21:00 Pantoprazole Sodium (Protonix) 40 mg BIDAC PO Last administered on 01/19/20at 08:02; Start 01/18/20 at 16:30 Sucralfate (Carafate) 1 gm QIDACHS PO Last administered on 01/19/20at 08:01; Start 01/18/20 at 16:30 Al Hydroxide/Mg Hydroxide (Mylanta Plus Xs) 30 ml PRN Q4HRS PRN PO HEARTBURN / GAS; Start 01/19/20 at 02:30 Aspirin (Aspirin Chewable) 81 mg 1X ONCE PO Last administered on 01/19/20at 08:40; Start 01/19/20 at 10:00; Stop 01/19/20 at 10:01 Aspirin (Aspirin Chewable) 81 mg STK-MED ONCE .ROUTE ; Start 01/19/20 at 08:39; Stop 01/19/20 at 08:40; Status DC Active Scripts Active Reported Oxybutynin Chloride 5 Mg Tablet 1 Tab PO BID Pantoprazole Sodium (Pantoprazole Sodium) 40 Mg Tablet.dr 40 Mg PO BID Furosemide 40 Mg Tablet 1 Tab PO DAILY Sucralfate 1 Gm Tablet 1 Tab PO QID Levothyroxine Sodium 175 Mcg Tablet 1 Tab PO DAILY Hydroxyzine Hcl 25 Mg Tablet 1 Tab PO TID PRN Bupropion Xl (Bupropion Hcl) 150 Mg Tab.er.24h 3 Tab PO DAILYWBKFT Carvedilol (Carvedilol) 6.25 Mg Tablet 6.25 Mg PO BIDWMEALS Ramipril 2.5 Mg Capsule 1 Cap PO BID Vitals/I & O Vital Sign - Last 24 Hours 01/18/20 01/18/20 01/18/20 01/18/20 10:28 10:40 11:00 11:00 Temp 97.6 97.6 Pulse 84 72 Resp 26 26 11 B/P (MAP) 160/74 (102) Pulse Ox 95 98 100 O2 Delivery Room Air Room Air Nasal Cannula O2 Flow Rate 2.0 01/18/20 01/18/20 01/18/20 01/18/20 11:24 11:30 11:45 12:00 Temp 98.7 98.7 Pulse 75 68 Resp 11 10 B/P (MAP) 109/59 (76) 127/59 (81) Pulse Ox 99 99 O2 Delivery Nasal Cannula Nasal Cannula Nasal Cannula O2 Flow Rate 2.0 2.0 2.0 01/18/20 01/18/20 01/18/20 01/18/20 12:00 12:15 12:30 13:00 Pulse 66 66 64 66 Resp 20 21 11 11 B/P (MAP) 149/68 (95) 148/69 (95) 139/63 (88) 133/55 (81) Pulse Ox 99 99 99 99 O2 Delivery Nasal Cannula Nasal Cannula Nasal Cannula Nasal Cannula O2 Flow Rate 2.0 2.0 2.0 2.0 01/18/20 01/18/20 01/18/20 01/18/20 13:30 14:00 15:00 16:00 Pulse 66 64 62 Resp 10 13 13 B/P (MAP) 131/51 (77) 135/60 (85) 146/66 (92) Pulse Ox 99 96 98 O2 Delivery Nasal Cannula Nasal Cannula Room Air Room Air O2 Flow Rate 2.0 2.0 01/18/20 01/18/20 01/18/20 01/18/20 16:00 17:00 18:00 18:18 Temp 98.0 98.0 Pulse 64 75 83 73 Resp 15 15 23 B/P (MAP) 151/64 (93) 168/59 (95) 150/65 (93) 150/65 Pulse Ox 96 96 96 O2 Delivery Room Air Room Air Room Air 01/18/20 01/18/20 01/18/20 01/18/20 19:20 19:35 19:36 19:45 Pulse 66 Resp 13 B/P (MAP) 149/58 (88) Pulse Ox 96 96 96 O2 Delivery Room Air Room Air Room Air Room Air 01/18/20 01/18/20 01/18/20 01/18/20 20:10 21:09 22:09 22:50 Temp 98.2 98.1 98.2 98.1 Pulse 70 68 68 74 Resp 16 19 18 16 B/P (MAP) 130/52 (78) 143/61 (88) 149/66 (93) 145/63 (90) Pulse Ox 96 96 96 97 O2 Delivery Room Air Room Air Room Air Room Air 01/18/20 01/19/20 01/19/20 01/19/20 23:56 00:05 01:05 02:27 Temp 98.7 98.7 Pulse 72 82 70 Resp 18 18 20 B/P (MAP) 136/58 (84) 147/65 (92) 153/65 (94) Pulse Ox 95 96 99 O2 Delivery Room Air Room Air Room Air Room Air 01/19/20 01/19/20 01/19/20 01/19/20 02:55 03:57 04:07 05:07 Temp 98.4 98.4 Pulse 72 74 71 Resp 16 19 18 B/P (MAP) 135/75 (95) 121/51 (74) 137/63 (87) Pulse Ox 95 95 98 O2 Delivery Room Air Room Air Room Air Room Air 01/19/20 01/19/20 01/19/20 01/19/20 05:51 07:00 08:00 08:02 Temp 98.4 98.4 Pulse 76 70 72 68 Resp 18 16 16 B/P (MAP) 128/59 (82) 153/66 (95) 140/69 (92) 150/60 Pulse Ox 96 96 98 O2 Delivery Room Air Room Air Nasal Cannula O2 Flow Rate 2.0 Intake and Output 01/18/20 01/18/20 01/19/20 15:00 23:00 07:00 Intake Total 944 ml 501.73 ml Output Total 500 ml 350 ml 0 ml Balance -500 ml 594 ml 501.73 ml Justicifation of Admission Dx: Justifications for Admission: Justification of Admission Dx: Yes Angina: Symp at Rest PR: Acute STEMI TESS FARMER MD Jan 19, 2020 09:10
[2020-01-19] MEDS ORDERED: ANTI-COAG MONITOR BY PHARMACY. MC PRN (09:15)
[2020-01-19] MEDS ORDERED: ASPIRIN CHEWABLE 81 MG TABLET. PO ONE (10:00)
--- NOTE | 2020-01-19 14:09 | PDOC3 ---
Discharge Summary Date of Admission: Jan 18, 2020 Date of Discharge: Jan 19, 2020 Follow-Up: 1-2 days Admitting Diagnosis comment: ASSESSMENT AND PLAN: Acute myocardial infarction with multivessel coronary artery disease. NTG gtt for BP control Referral for CABG. LAD is a moderate caliber vessel with a proximal calcified eccentric 70% stenosis followed by a calcified 80 to 90% stenosis with focal small aneurysmal segment. The mid and distal has normal angiographic appearance The first diagonal is a moderate caliber vessel without any significant obstructive disease in the takeoff of this vessel is after the proximal LAD stenosis The second diagonal is a moderate caliber vessel without any significant disease The left circumflex is a moderate caliber dominant vessel with heavy rebekah cification and tortuosity with a proximal 80% stenosis, plan ICU bed. Cardiology input. bypass surgery. home meds, deep venous thrombosis prophylaxis, wound care, p.r.n. morphine. Carotid Dopplers. vein mapping, lipid panel, heparin drip, p.r.n. nitroglycerin. The patient will be evaluated for bypass and transferred as appropriate in the next 4 hours. Continue heparin and aspirin therapy. 35 MIN CC TIME Vitals Vitals Vital Signs Date Time Temp Pulse Resp B/P (MAP) Pulse Ox O2 Delivery O2 Flow Rate FiO2 01/19/20 08:02 68 150/60 01/19/20 08:00 98.4 16 98 Nasal Cannula 2.0 98.4 Physical Exam General: Alert, Oriented X3, Cooperative Labs LABS CT CHEST WO CONTRAST History: Pre-CABG evaluation. Technique: Noncontrast CT of the chest was performed. Coronal and sagittal reconstructions were performed. Exposure: One or more of the following individualized dose reduction techniques were utilized for this examination: 1. Automated exposure control 2. Adjustment of the mA and/or kV according to patient size 3. Use of iterative reconstruction technique. Comparison: None Findings: Chest: Coronary artery calcification. Mild atheromatous plaque within the aorta. No pathologic lymphadenopathy. No consolidation or pleural effusion. Upper abdomen: Prior cholecystectomy. Bones: Chronic T10 superior endplate compression deformity. No pathologic osseous lesions. Impression: 1. Coronary artery calcification. Electronically signed by: Haider Ulloa DO (01/19/2020 8:40 AM) [id number] DICTATED and SIGNED BY: HAIDER ULLOA DO DATE: 07/24/20 0840 Heart Failure Heart Failure: Yes If Yes, Newly Diagnosed: Yes If Yes, HF Type: Diastolic Systolic If Yes, NYHA Class: Class III PROCEDURE NARRATIVE Clinical indication: 75-year-old man with acute exertional dyspnea who presented to the hospital in the setting of hypertensive urgency and transient ST elevations inferiorly. The cardiac catheterization team was activated for further evaluation and treatment. Verbal informed consent was obtained from the patient in the setting of emergency. Procedure details: Right radial arterial access was obtained via the Seldinger technique under 2% lidocaine local anesthesia and a 6 Hebrew glide sheath was placed. Next, diagnostic angiography was performed with a 6 Hebrew Garrochales catheter. Left ventriculography was performed with a pigtail catheter and a pullback was performed. Findings: Aorta: 156/82 LVEDP 20 mmHg Left ventriculogram reveals normal LV systolic function with posterior basal and proximal diaphragmatic severe hypokinesis to akinesis. Ejection fraction 50%. Coronary angiography: Left main is a large-caliber calcified vessel with a distal 20% stenosis LAD is a moderate caliber vessel with a proximal calcified eccentric 70% stenosis followed by a calcified 80 to 90% stenosis with focal small aneurysmal segment. The mid and distal has normal angiographic appearance The first diagonal is a moderate caliber vessel without any significant obstructive disease in the takeoff of this vessel is after the proximal LAD stenosis The second diagonal is a moderate caliber vessel without any significant disease The left circumflex is a moderate caliber dominant vessel with heavy calcification and tortuosity with a proximal 80% stenosis, mid subtotal occlusion with a focal aneurysmal segment. OM1 is a moderate caliber vessel with mild luminal irregularities. LPL1 is a moderate caliber vessel that is seen to fill faintly via left to left collaterals. LPDA is a small caliber vessel with normal angiographic appearance. RCA is a small caliber non-dominant vessel with proximal 50% stenosis. Given lack of chest pain, normalization of EKG and chronic diffuse disease inv olving the dominant LCx and disease in the LAD with underlying history of DM2, the patient was referred for CABG. Conclusion 1. Acute on chronic systolic and diastolic HF. LVEDP 20 mm Hg 2. Mild LV dysfunction. EF 50% 3. Three vessel coronary disease. Recommendations ASA 81mg daily Hep gtt NTG gtt for BP control Referral for CABG. If deemed poor candidate, consider high risk PCI of the LCx and LAD. Signed by : Mickey Mullins, FINAL DIAGNOSIS Problems Medical Problems: (1) STEMI (ST elevation myocardial infarction) Status: Acute Brief Hospital Course Mr. Aleman is a 75 old [sex] who presented with [ ACUTE STEMI ] CONDITION AT DISCHARGE: Improved Discharge Medications Current Medications Heparin Sodium (Porcine) (Heparin Sodium) 4,000 unit 1X ONCE IV Last administered on 01/18/20at 10:40; Start 01/18/20 at 10:45; Stop 01/18/20 at 11:00; Status DC Morphine Sulfate (Morphine Sulfate) 2 mg 1X ONCE IV Last administered on 01/18/20at 10:40; Start 01/18/20 at 10:45; Stop 01/18/20 at 11:00; Status DC Fentanyl Citrate (Fentanyl 2ml Vial) 100 mcg STK-MED ONCE .ROUTE ; Start 01/18/20 at 10:47; Stop 01/18/20 at 10:47; Status DC Midazolam HCl (Versed) 2 mg STK-MED ONCE .ROUTE ; Start 01/18/20 at 10:47; Stop 01/18/20 at 10:47; Status DC Verapamil HCl (Verapamil) 5 mg STK-MED ONCE .ROUTE ; Start 01/18/20 at 10:48; Stop 01/18/20 at 10:48; Status DC Nitroglycerin (Nitroglycerin) 200 mcg STK-MED ONCE .ROUTE ; Start 01/18/20 at 10:48; Stop 01/18/20 at 10:48; Status DC Nitroglycerin (Nitroglycerin) 200 mcg 1X ONCE IART Last administered on 01/18/20at 11:00; Start 01/18/20 at 11:00; Stop 01/18/20 at 11:07; Status DC Verapamil HCl (Verapamil) 2.5 mg 1X ONCE IART Last administered on 01/18/20at 11:00; Start 01/18/20 at 11:00; Stop 01/18/20 at 11:07; Status DC Heparin Sodium (Porcine) (Heparin Sodium) 2,500 unit 1X ONCE IART Last administered on 01/18/20at 11:00; Start 01/18/20 at 11:00; Stop 01/18/20 at 11:07; Status DC Heparin Sodium/ Sodium Chloride (HEPARIN for ARTERIAL LINE FLUSH) 1,000 unit 1X ONCE IART Last administered on 01/18/20at 11:00; Start 01/18/20 at 11:00; Stop 01/18/20 at 11:08; Status DC Heparin Sodium/ Sodium Chloride (HEPARIN for ARTERIAL LINE FLUSH) 1,000 unit 1X ONCE IART Last administered on 01/18/20at 11:00; Start 01/18/20 at 11:00; Stop 01/18/20 at 11:07; Status DC Midazolam HCl (Versed) 2 mg 1X ONCE IV Last administered on 01/18/20at 11:00; Start 01/18/20 at 11:00; Stop 01/18/20 at 11:07; Status DC Fentanyl Citrate (Fentanyl 2ml Vial) 100 mcg 1X ONCE IV Last administered on 01/18/20at 11:00; Start 01/18/20 at 11:00; Stop 01/18/20 at 11:07; Status DC Iodixanol (Visipaque 320) 100 ml 1X ONCE IART Last administered on 01/18/20at 11:00; Start 01/18/20 at 11:00; Stop 01/18/20 at 11:07; Status DC Lidocaine HCl (Xylocaine-Mpf 1% 2ml Vial) 2 ml 1X ONCE INJ Last administered on 01/18/20at 11:00; Start 01/18/20 at 11:00; Stop 01/18/20 at 11:07; Status DC Info (CONTRAST GIVEN -- Rx MONITORING) 1 each PRN DAILY PRN MC SEE COMMENTS; Start 01/18/20 at 11:15; Stop 01/19/20 at 10:01; Status DC Heparin Sodium/ Dextrose 250 ml @ 8.65 mls/hr CONT PRN IV PER PROTOCOL Last a dministered on 01/18/20at 11:55; Start 01/18/20 at 11:15; Stop 01/19/20 at 10:01; Status DC Heparin Sodium (Porcine) (Heparin Sodium) 1,800 unit PRN Q6HRS PRN IV FOR UFH LEVEL LESS THAN 0.2; Start 01/18/20 at 11:15; Stop 01/19/20 at 10:01; Status DC Nitroglycerin/ Dextrose 250 ml @ 1.5 mls/hr CONT PRN IV SEE I/O RECORD; Start 01/18/20 at 11:15; Stop 01/19/20 at 10:01; Status DC Bupropion HCl (Wellbutrin Xl) 450 mg DAILYWBKFT PO Last administered on 01/19/20at 08:01; Start 01/19/20 at 08:00; Stop 01/19/20 at 10:01; Status DC Carvedilol (Coreg) 6.25 mg BIDWMEALS PO Last administered on 01/19/20at 08:02; Start 01/18/20 at 17:00; Stop 01/19/20 at 10:01; Status DC Furosemide (Lasix) 40 mg DAILY PO Last administered on 01/19/20at 08:02; Start 01/18/20 at 15:00; Stop 01/19/20 at 10:01; Status DC Levothyroxine Sodium (Synthroid) 175 mcg DAILY06 PO Last administered on 01/19/20at 05:48; Start 01/19/20 at 06:00; Stop 01/19/20 at 10:01; Status DC Oxybutynin Chloride (Ditropan) 5 mg BID PO Last administered on 01/19/20at 08:02; Start 01/18/20 at 21:00; Stop 01/19/20 at 10:01; Status DC Pantoprazole Sodium (Protonix) 40 mg BIDAC PO Last administered on 01/19/20at 08:02; Start 01/18/20 at 16:30; Stop 01/19/20 at 10:01; Status DC Sucralfate (Carafate) 1 gm QIDACHS PO Last administered on 01/19/20at 08:01; Start 01/18/20 at 16:30; Stop 01/19/20 at 10:01; Status DC Al Hydroxide/Mg Hydroxide (Mylanta Plus Xs) 30 ml PRN Q4HRS PRN PO HEARTBURN / GAS; Start 01/19/20 at 02:30; Stop 01/19/20 at 10:01; Status DC Aspirin (Aspirin Chewable) 81 mg 1X ONCE PO Last administered on 01/19/20at 08:40; Start 01/19/20 at 10:00; Stop 01/19/20 at 10:01; Status DC Aspirin (Aspirin Chewable) 81 mg STK-MED ONCE .ROUTE ; Start 01/19/20 at 08:39; Stop 01/19/20 at 08:40; Status DC Info (Anti-Coagulation Monitoring By Pharmacy) 1 each PRN DAILY PRN MC SEE COMMENTS; Start 01/19/20 at 09:15; Stop 01/19/20 at 10:01; Status DC Active Scripts Active Reported Oxybutynin Chloride 5 Mg Tablet 1 Tab PO BID Pantoprazole Sodium (Pantoprazole Sodium) 40 Mg Tablet.dr 40 Mg PO BID Furosemide 40 Mg Tablet 1 Tab PO DAILY Sucralfate 1 Gm Tablet 1 Tab PO QID Levothyroxine Sodium 175 Mcg Tablet 1 Tab PO DAILY Hydroxyzine Hcl 25 Mg Tablet 1 Tab PO TID PRN Bupropion Xl (Bupropion Hcl) 150 Mg Tab.er.24h 3 Tab PO DAILYWBKFT Carvedilol (Carvedilol) 6.25 Mg Tablet 6.25 Mg PO BIDWMEALS Ramipril 2.5 Mg Capsule 1 Cap PO BID Vital Signs Vital Signs Date Time Temp Pulse Resp B/P (MAP) Pulse Ox O2 Delivery O2 Flow Rate FiO2 01/19/20 08:02 68 150/60 01/19/20 08:00 Room Air 01/19/20 08:00 98.4 16 98 2.0 98.4 Labs Laboratory Tests Test 01/18/20 10:42 01/18/20 17:45 01/18/20 18:00 01/19/20 00:50 White Blood Count 10.5 x10^3/uL (4.0-11.0) Red Blood Count 4.42 x10^6/uL (4.30-5.70) Hemoglobin 13.3 g/dL (13.0-17.5) Hematocrit 38.9 % (39.0-53.0) Mean Corpuscular Volume 88 fL (79-100) Mean Corpuscular Hemoglobin 30 pg (25-35) Mean Corpuscular Hemoglobin Concent 34 g/dL (31-37) Red Cell Distribution Width 13.8 % (11.5-14.5) Platelet Count 278 x10^3/uL (140-400) Neutrophils (%) (Auto) 75 % (31-73) Lymphocytes (%) (Auto) 17 % (24-48) Monocytes (%) (Auto) 7 % (0-9) Eosinophils (%) (Auto) 1 % (0-3) Basophils (%) (Auto) 1 % (0-3) Neutrophils # (Auto) 7.9 x10^3/uL (1.8-7.7) Lymphocytes # (Auto) 1.8 x10^3/uL (1.0-4.8) Monocytes # (Auto) 0.7 x10^3/uL (0.0-1.1) Eosinophils # (Auto) 0.1 x10^3/uL (0.0-0.7) Basophils # (Auto) 0.1 x10^3/uL (0.0-0.2) Prothrombin Time 12.5 SEC (11.7-14.0) Prothromb Time International Ratio 1.0 (0.8-1.1) Activated Partial Thromboplast Time 27 SEC (24-38) Sodium Level 138 mmol/L (136-145) Potassium Level 4.2 mmol/L (3.5-5.1) Chloride Level 103 mmol/L (98-107) Carbon Dioxide Level 28 mmol/L (21-32) Anion Gap 7 (6-14) Blood Urea Nitrogen 29 mg/dL (8-26) Creatinine 1.5 mg/dL (0.7-1.3) Estimated GFR (Cockcroft-Gault) 45.9 Glucose Level 198 mg/dL (70-99) Calcium Level 9.5 mg/dL (8.5-10.1) Total Bilirubin 0.5 mg/dL (0.2-1.0) Direct Bilirubin 0.2 mg/dL (0.0-0.2) Aspartate Amino Transf (AST/SGOT) 38 U/L (15-37) Alanine Aminotransferase (ALT/SGPT) 50 U/L (16-63) Alkaline Phosphatase 237 U/L (46-116) Troponin I Quantitative 0.703 ng/mL (0.000-0.055) CL-Tff-U-Type Natriuretic Peptide 1144 pg/mL (0-124) Total Protein 7.1 g/dL (6.4-8.2) Albumin 3.0 g/dL (3.4-5.0) Triglycerides Level 178 mg/dL (0-150) Cholesterol Level 190 mg/dL (0-200) LDL Cholesterol, Calculated 120 mg/dL (0-100) VLDL Cholesterol, Calculated 36 mg/dL (0-40) Non-HDL Cholesterol Calculated 156 mg/dL (0-129) HDL Cholesterol 34 mg/dL (40-60) Cholesterol/HDL Ratio 5.6 Lipase 160 U/L (73-393) Heparin Anti-Xa Act, Unfractionated 0.31 IU/mL (0.30-0.70) 0.20 IU/mL (0.30-0.70) SARS-CoV-2 Antigen (Rapid) Negative (NEGATIVE) Test 01/19/20 06:55 White Blood Count 9.0 x10^3/uL (4.0-11.0) Red Blood Count 4.12 x10^6/uL (4.30-5.70) Hemoglobin 12.6 g/dL (13.0-17.5) Hematocrit 36.1 % (39.0-53.0) Mean Corpuscular Volume 88 fL (79-100) Mean Corpuscular Hemoglobin 31 pg (25-35) Mean Corpuscular Hemoglobin Concent 35 g/dL (31-37) Red Cell Distribution Width 13.5 % (11.5-14.5) Platelet Count 233 x10^3/uL (140-400) Heparin Anti-Xa Act, Unfractionated 0.28 IU/mL (0.30-0.70) Laboratory Tests Test 01/18/20 17:45 01/18/20 18:00 01/19/20 00:50 01/19/20 06:55 Heparin Anti-Xa Act, Unfractionated 0.31 IU/mL (0.30-0.70) 0.20 IU/mL (0.30-0.70) 0.28 IU/mL (0.30-0.70) SARS-CoV-2 Antigen (Rapid) Negative (NEGATIVE) White Blood Count 9.0 x10^3/uL (4.0-11.0) Red Blood Count 4.12 x10^6/uL (4.30-5.70) Hemoglobin 12.6 g/dL (13.0-17.5) Hematocrit 36.1 % (39.0-53.0) Mean Corpuscular Volume 88 fL (79-100) Mean Corpuscular Hemoglobin 31 pg (25-35) Mean Corpuscular Hemoglobin Concent 35 g/dL (31-37) Red Cell Distribution Width 13.5 % (11.5-14.5) Platelet Count 233 x10^3/uL (140-400) Allergies Allergies Coded Allergies Type Severity Reaction Last Updated Verified codeine Allergy Unknown 01/18/20 Yes Disposition/Orders: Other (D/C TO [facility]) Justicifation of Admission Dx: Justifications for Admission: Justification of Admission Dx: Yes Angina: Symp at Rest SC: Acute STEMI TESS FARMER MD Jan 19, 2020 14:09
== END 2020-01-19 08:50 | disposition short-term general hospital (02) | DRG 280 ==
LOC: CCL 10:28 → 1 WEST ICU 10:47
PROVIDERS: ADMIT Internal Medicine; ATTEND Internal Medicine
PROC: 4A023N7 Measurement of Cardiac Sampling and Pressure, Left Heart, Percutaneous Approach (ICD-10-PCS; principal; 2020-01-18)
PROC: B211YZZ Fluoroscopy of Multiple Coronary Arteries using Other Contrast (ICD-10-PCS; 2020-01-18)
PROC: B215YZZ Fluoroscopy of Left Heart using Other Contrast (ICD-10-PCS; 2020-01-18)
DX: I21.19 ST elevation (STEMI) myocardial infarction involving other coronary artery of inferior wall (principal); I50.43 Acute on chronic combined systolic (congestive) and diastolic (congestive) heart failure; E03.9 Hypothyroidism, unspecified; E11.9 Type 2 diabetes mellitus without complications; E78.5 Hyperlipidemia, unspecified; Z20.828 Contact with and (suspected) exposure to other viral communicable diseases; I21.29 ST elevation (STEMI) myocardial infarction involving other sites; I25.10 Atherosclerotic heart disease of native coronary artery without angina pectoris; I11.0 Hypertensive heart disease with heart failure; Z82.49 Family history of ischemic heart disease and other diseases of the circulatory system; Z87.891 Personal history of nicotine dependence; Z88.5 Allergy status to narcotic agent; Z79.899 Other long term (current) drug therapy
CPT/HCPCS: 36415; 71250; 80048; 80061; 80076; 83690; 83880; 84484; 85025; 85027; 85520; 85610; 85730; 87426; 93005; 93306; 93458; 93880; 93970; 96374; 96375; 99152; 99153; 99285; C1769; C1892; J1644; J2250; J2270; J3010; J3490; Q9967; G0378; U0003-CS